=== PATIENT | male | born 1960 | race Caucasian/White ===

== ENCOUNTER 2020-02-12 09:19 | Inpatient (IN) | payer MEDICAID, SELFPAY ==
[~2020-02-12] VITALS: Ht 167.6 cm; Wt 90.7 kg
[2020-02-12 09:19] VITALS: BP 136/60
--- NOTE | 2020-02-12 09:19 | NUR ---
Patient BIBA, transferred to tent 3. RN evaluating patient.
[2020-02-12] MEDS ORDERED: NACL 0.9% 1,000 ML IV SCH (11:30)
[2020-02-12 12:18] LABS: BASOPHILS # (AUTO) 0.1 K/uL (0.00-0.22); BASOPHILS % (AUTO) 0.7 % (0.0-2.0); HEMATOCRIT 43.2 % (36-52); HEMOGLOBIN 14.6 g/dL (12.0-18.0); LYMPHOCYTES # (AUTO) 0.9 K/uL (2.0-11.5); LYMPHOCYTES % (AUTO) 10.5 % (20.5-51.1); MEAN CORPUSCULAR HEMOGLOBIN 29 pg (27-31); MEAN CORPUSCULAR HGB CONC 34 g/dL (33-37); MEAN CORPUSCULAR VOLUME 85.3 fL (80-94); MONOCYTES # (AUTO) 0.6 K/uL (0.8-1.0); MONOCYTES % (AUTO) 7.2 % (1.7-9.3); NEUTROPHILS # (AUTO) 6.9 K/uL (1.8-7.7); NEUTROPHILS % (AUTO) 81.6 % (42.2-75.2); PLATELET COUNT (AUTO) 268 K/uL (140-450); RED BLOOD CELL COUNT(AUTO) 5.07 MIL/uL (4.20-6.10); RED CELL DISTRIBUTION WIDTH 12.4 % (11.6-13.7); WHITE BLOOD COUNT (AUTO) 8.5 K/uL (4.8-10.8)
[2020-02-12 12:35] LABS: LACTATE DEHYDROGENASE 318 U/L (85-227)
[2020-02-12 12:38] LABS: ALBUMIN 3.7 g/dL (3.4-5.0); ANION GAP 13.8 (8-16); CARBON DIOXIDE 28.4 mmol/L (21-32); POTASSIUM 4.2 mmol/L (3.5-5.1); TOTAL BILIRUBIN 0.7 mg/dL (0.0-1.0)
[2020-02-12 12:39] LABS: PROTHROMBIN TIME 9.9 secs (10.8-13.4)
[2020-02-12 12:45] LABS: C-REACTIVE PROTEIN QUANT 8.5 mg/dL (0.0-0.9)
[2020-02-12] MEDS ORDERED: ACETAMINOPHEN 325 MG TAB PO PRN (17:45)
[2020-02-12] MEDS: NACL 0.9% 1,000 ML IV SCH (17:45)
[2020-02-12] MEDS ORDERED: guaiFENesin DM 200/20 MG-10 ML 10 ML UDC PO PRN (17:45)
[2020-02-12] MEDS ORDERED: HYDROcodone/APAP 7.5/325 MG 1 TAB PO PRN (17:45)
[2020-02-12] MEDS ORDERED: ALBUTEROL HFA MDI 90 MCG/ACTUATION 8 GM INH PRN (17:45)
[2020-02-12] MEDS ORDERED: DOCUSATE SODIUM 100 MG GELCAP PO PRN (17:45)
[2020-02-12] MEDS ORDERED: ZOLPIDEM 5 MG TAB PO PRN (17:45)
[2020-02-12] MEDS ORDERED: POTASSIUM CHLORIDE 10 MEQ TABER PO PRN (17:45)
--- NOTE | 2020-02-12 18:43 | NUR ---
DANIEL MADE AWARE THAT UNABLE TO GIVE IV MEDS IN LOBBY
[2020-02-12 18:50] LABS: CHOL/HDL RATIO 4.8 (1-4.5); FREE T4 (FREE THYROXINE) 1.13 ng/dL (0.76-1.46); MAGNESIUM 2.9 mg/dL (1.8-2.4); PHOSPHORUS 3.6 mg/dL (2.5-4.9); THYROID STIMULATING HORMONE 1.04 uIU/mL (0.34-3.74)
--- NOTE | 2020-02-12 19:33 | NUR ---
PT SITTING IN CHAIR IN TRIAGE . RR EVEN AND UNLABORED. NO ACUTE DISTRESS NOTED AT THIS TIME. Addendum: 02/12/20 at 1933 by OPAL PT SITTING IN CHAIR IN TENT . RR EVEN AND UNLABORED. NO ACUTE DISTRESS NOTED AT THIS TIME.
--- NOTE | 2020-02-12 19:45 | NUR ---
59 Y/O MALE PRESENTED TO ED C/O COVID SYMPTOMS . PT WAS DX W/ COVID X 2 WEEKS AGO. PT STATES HE IS FEELING DEHYDRATED AND IS HAVING SOB. PT + COUGH, FEVER, N/V . PT STATES CHEST PAIN W/ COUGH. PT A/O X 4. RR EVEN AND UNLABORED. LUNG SOUNDS CLEAR. S1S3 NOTED. CAP REFIL < 3 SEC. PT SITTING IN TENT , VSS , NO ACUTE DISTRESS NOTED AT THIS TIME. PMH: ASTHMA NKA
--- NOTE | 2020-02-12 20:13 | NUR ---
EVERT ALONSO , FLU AND MRSA SWABS COLLECTED AND HANDED TO NICHOLAS BILLING CHECKER.
[2020-02-12] MEDS: ENOXAPARIN 100 MG/ML SYR SUBQ SCH (21:00)
[2020-02-12] MEDS ORDERED: LOVENOX 1MG/KG Q12H SUBQ SCH (21:00)
--- NOTE | 2020-02-12 21:17 | NUR ---
CRITICAL LAB - COVID +
--- NOTE | 2020-02-13 | NUR ---
PT DECLINED BLANKET AT THIS TIME. VSS. NO ACUTE DISTRESS.
--- NOTE | 2020-02-13 03:00 | NUR ---
PT SLEEPING IN RECLINER CHAIR, RR EVEN AND UNLABORED, PT ON NC 2L. NO ACUTE DISTRESS NOTED.
--- NOTE | 2020-02-13 05:40 | NUR ---
PT RESTING IN CHAIR, VSS. PT ON OXYGEN 2L NC. NO ACUTE DISTRESS NOTED. PT DECLINES BLANKET AT THIS TIME.
--- NOTE | 2020-02-13 06:53 | NUR ---
PT SLEEPING IN GURNEY IN THE TENT, NO ACUTE DISTRESS. VISIBLE RISE AND FALL OF CHEST.
--- NOTE | 2020-02-13 07:21 | NUR ---
REPORT GIVEN TO EILEEN GIRALDO FOR CONTINUATION OF CARE.
[2020-02-13 08:07] LABS: T4 (THYROXINE) 7.4 ug/dL (4.5-12.0)
[2020-02-13] MEDS: PANTOPRAZOLE 40 MG TABEC PO SCH (09:00)
[2020-02-13] MEDS: ASCORBIC ACID 500 MG TAB PO SCH (09:00)
[2020-02-13] MEDS: ZINC SULF 220 MG CAP PO SCH (09:00)
[2020-02-13] MEDS: ENOXAPARIN 100 MG/ML SYR SUBQ SCH ×2 (09:00→21:00)
[2020-02-13] MEDS: AZITHROMYCIN 250 MG TAB PO SCH (09:00)
--- NOTE | 2020-02-13 09:15 | NUR ---
PT REFUSED ALL MEDS AT THIS TIME, STATES "I DONT WANT NOTHING, IM GOING TO THROW UP"
--- NOTE | 2020-02-13 09:26 | NUR ---
PATIENT HAS BEEN SCREENED AND CATEGORIZED MODERATE NUTRITION RISK. PATIENT WILL BE SEEN WITHIN 3-5 DAYS OF ADMISSION. 02/15/20 02/17/[address]
[2020-02-13] MEDS: NACL 0.9% 1,000 ML IV SCH (10:25)
--- NOTE | 2020-02-13 11:17 | NUR ---
PT TAKEN TO BED 4, REPORT GIVEN TO UBALDO AT THIS TIME
--- NOTE | 2020-02-13 11:21 | NUR ---
PT TRANSFERRED TO BED 4 AT THIS TIME. TAKING OVER CARE AT THIS TIME
--- NOTE | 2020-02-13 11:59 | NUR ---
SOCIAL WORK NOTE: SW WAS UNABLE TO MEET PATIENT AT BEDSIDE TO COMPLETE ASSESSMENT. SW CONTACTED EMERGENCY CONTACT BROTHER VY VIGIL [phone] AND LEFT VM. SW WILL FOLLOW UP.
[2020-02-13 12:20] LABS: BASOPHILS % (AUTO) 0.3 % (0.0-2.0); EOSINOPHILS % (AUTO) 0.1 % (0.0-4.0); HEMATOCRIT 45.8 % (36-52); HEMOGLOBIN 15.3 g/dL (12.0-18.0); LYMPHOCYTES % (AUTO) 11.6 % (20.5-51.1); MEAN CORPUSCULAR HEMOGLOBIN 29 pg (27-31); MEAN CORPUSCULAR HGB CONC 34 g/dL (33-37); MEAN CORPUSCULAR VOLUME 85.7 fL (80-94); MONOCYTES # (AUTO) 0.5 K/uL (0.8-1.0); MONOCYTES % (AUTO) 5.9 % (1.7-9.3); NEUTROPHILS # (AUTO) 7.2 K/uL (1.8-7.7); NEUTROPHILS % (AUTO) 82.1 % (42.2-75.2); PLATELET COUNT (AUTO) 306 K/uL (140-450); RED BLOOD CELL COUNT(AUTO) 5.35 MIL/uL (4.20-6.10); RED CELL DISTRIBUTION WIDTH 12.7 % (11.6-13.7); WHITE BLOOD COUNT (AUTO) 8.7 K/uL (4.8-10.8)
--- NOTE | 2020-02-13 12:32 | NUR ---
DC PLANN[age] YRS OLD MALE PATIENT WAS ADMITTED FROM HOME WITH A DX OF COVID PNA, HYPOXIA. PATIENT HAS A HX OF PE , MILD ASTHMA. CXR SHOWED MILD MULTIFOCAL PNEUMONIA OF THE RIGHT MID AND LOWER LUNG. RAPID COVID TEST POSITIVE. STARTED ON COVID PROTOCOL REMDESEVIR , ROCEPHIN AND AZITHROMYCIN IV AX. CONSULTED WITH PULMO AND ID. DC PLAN TO GO HOME WHEN STABLE CM TO FOLLOW. Addendum: 02/14/20 at 1515 by Saima Gonzalez RN DC PLANNING: PT HAS AN ORDER FOR HOME O2 FAXED TO [facility] DC BILLING REP WILL FOLLOW UP Addendum: 02/14/20 at 1703 by Cecilia Pompa CM DC BILLING REP: CALLED [facility] AND ASKED TO SPEAK TO JAVON [phone] [facility] TO FOLLOW UP ON ORDER SHE WAS NOT AVAILABLE AT THE TIME. Addendum: 02/15/20 at 09 by Cecilia Pompa CM RANDELL PRASAD: SPOKE TO SREE AT [facility] THEY WILL DISPATCH THE HOME
[2020-02-13 13:23] LABS: BARBITURATE, URINE NEGATIVE ng/ml (NEG <=200); BENZODIAZEPINE, URINE NEGATIVE ng/mL (NEG <=200); CANNABINOID, URINE NEGATIVE ng/mL (NEG <=50); COCAINE, URINE NEGATIVE ng/mL (NEG <=300); OPIATE, URINE NEGATIVE ng/mL (NEG <=2000); PHENCYCLIDINE SCREEN,URINE NEGATIVE ng/mL (NEG <=25)
[2020-02-13 14:21] LABS: ANION GAP 14.4 (8-16); CARBON DIOXIDE 28.9 mmol/L (21-32); CREATININE 1.1 mg/dL (0.6-1.3); POTASSIUM 4.3 mmol/L (3.5-5.1)
[2020-02-13 14:37] LABS: APPEARANCE,URINE CLEAR (CLEAR); BILIRUBIN,URINE 1+ (NEGATIVE); BLOOD, URINE NEGATIVE (NEGATIVE); COLOR,URINE AMBER (YELLOW); LEUKOCYTE ESTERASE ,URINE NEGATIVE (NEGATIVE); NITRITE, URINE NEGATIVE (NEGATIVE); UGLUCOSE NEGATIVE (NEGATIVE)
[2020-02-13 15:22] LABS: RBC,URINE 0-5 /HPF (0-5); WBC,URINE 0-5 /HPF (0-5)
--- NOTE | 2020-02-13 16:16 | NUR ---
REPORT GIVEN TO EILEEN GIRALDO. TRANSFER OF CARE AT THIS TIME.
--- NOTE | 2020-02-13 17:00 | NUR ---
VSS, NO ACUTE DISTRESS AT THIS TIME. PT IS AWAKE AND ALERT SITTING UP IN BED, RESP EVEN AND UNLABORED. 4L NC.
[2020-02-13] MEDS ORDERED: cefTRIAXone 1,000 MG VIAL ONE (17:51)
--- NOTE | 2020-02-13 19:24 | NUR ---
PT ENDORSED TO NOEMY ARELLANO
--- NOTE | 2020-02-13 21:10 | NUR ---
PT ADMITTED UNDER THE CARE OF Dr. Jarvis. admitted to telemetry room 122A. report given to Missy ARELLANO.
--- NOTE | 2020-02-13 21:30 | NUR ---
RECEIVED TELEPHONE REPORT FORM CHINA ARELLANO IN ER FOR CONTINUITY OF CARE, PT IN STABLE CONDITION.
--- NOTE | 2020-02-13 22:00 | NUR ---
PT UP ON THE FLOOR AOX4 SKIN INTACT CONTINENT AND AMBULATES INDEPENDENTLY. PT ON 4 LITERS VIA N/C. RESPIRATIONS EVEN AND UNLABORED. ALL REQUESTS, ATTENDED BY STAFF.
--- NOTE | 2020-02-13 22:30 | NUR ---
PT GIVEN ORDERED LOVENOX SQ FOR DVT PREVENTION. EDUCATION REGARDING MEDICATION PROVIDED AT BEDSIDE, PT VERBALIZED UNDERSTANDING.
[2020-02-14] VITALS: BP 139/74
[2020-02-14] MEDS: ONDANSETRON 4 MG/2 ML VIAL IM/IVP PRN ×2 (00:08→11:44)
--- NOTE | 2020-02-14 00:15 | NUR ---
PT C/O NAUSEA, HE WAS GIVEN IVP/PRN ZOFRAN. PT CONTINUES ON 4 LITERS SUPPLEMENTAL 02.
[2020-02-14] MEDS: NACL 0.9% 1,000 ML IV SCH ×2 (00:24→19:45)
--- NOTE | 2020-02-14 03:00 | NUR ---
PT IN BED ASLEEP, PT RR EVEN AND UNLABORED IN 4 LITERS VIA N/C. ALL ORDERED PRECAUTIONS IN PLACE,.
[2020-02-14 04:00] VITALS: BP 117/67
--- NOTE | 2020-02-14 06:00 | NUR ---
P[T SLEEPING NO C/O VOICED 02 RUNNING AT 4 LITERS VIA N/C
[2020-02-14 06:26] LABS: BASOPHILS % (AUTO) 0.1 % (0.0-2.0); EOSINOPHILS % (AUTO) 0.3 % (0.0-4.0); HEMATOCRIT 39.2 % (36-52); HEMOGLOBIN 13.1 g/dL (12.0-18.0); LYMPHOCYTES % (AUTO) 12.3 % (20.5-51.1); MEAN CORPUSCULAR HEMOGLOBIN 29 pg (27-31); MEAN CORPUSCULAR HGB CONC 33 g/dL (33-37); MEAN CORPUSCULAR VOLUME 86.5 fL (80-94); MONOCYTES # (AUTO) 0.7 K/uL (0.8-1.0); MONOCYTES % (AUTO) 7.8 % (1.7-9.3); NEUTROPHILS # (AUTO) 6.8 K/uL (1.8-7.7); NEUTROPHILS % (AUTO) 79.5 % (42.2-75.2); PLATELET COUNT (AUTO) 281 K/uL (140-450); RED BLOOD CELL COUNT(AUTO) 4.53 MIL/uL (4.20-6.10); RED CELL DISTRIBUTION WIDTH 12.7 % (11.6-13.7); WHITE BLOOD COUNT (AUTO) 8.5 K/uL (4.8-10.8)
[2020-02-14 06:30] LABS: ANION GAP 13.4 (8-16); CARBON DIOXIDE 27.2 mmol/L (21-32); CREATININE 0.8 mg/dL (0.6-1.3); POTASSIUM 3.6 mmol/L (3.5-5.1)
--- NOTE | 2020-02-14 07:30 | NUR ---
RECEIVED PT AAOX4. NO SOB NOTED. PT ON 4 LPM VIA NC WITH SATS OF 96%. NO C/O PAIN AT THIS TIME. INSTRUCTED TO CALL FOR ASSISTANCE, CALL LIGHT WITHIN REACH, PT VERBALIZED UNDERSTANDING.
[2020-02-14 08:00] VITALS: BP 122/66
[2020-02-14] MEDS: ENOXAPARIN 100 MG/ML SYR SUBQ SCH ×2 (10:35→22:40)
[2020-02-14] MEDS: ATORVASTATIN 20 MG TAB PO SCH (10:35)
[2020-02-14] MEDS: ZINC SULF 220 MG CAP PO SCH (10:36)
[2020-02-14] MEDS: AZITHROMYCIN 250 MG TAB PO SCH (10:36)
[2020-02-14] MEDS: PANTOPRAZOLE 40 MG TABEC PO SCH (10:36)
[2020-02-14] MEDS: ASCORBIC ACID 500 MG TAB PO SCH (10:36)
[2020-02-14] MEDS ORDERED: ONDANSETRON 4 MG/2 ML VIAL IVP PRN (11:20)
[2020-02-14 12:00] VITALS: BP 126/66
--- NOTE | 2020-02-14 14:00 | NUR ---
SPOKE WITH DR. PRIETO REGARDING PT'S PREVIOUS CT CHEST ANGIO ORDER. DR PRIETO STATED THAT PT NEED TO HAVE CT CHEST ANGIO DONE BEFORE DISCHARGE.
[2020-02-14] MEDS ORDERED: ZINC220C28 PO (14:13)
[2020-02-14] MEDS ORDERED: AZIT250T11 PO (14:13)
[2020-02-14] MEDS ORDERED: ALBU0.0912 INH (14:13)
[2020-02-14] MEDS ORDERED: VITC500 PO (14:13)
[2020-02-14] MEDS ORDERED: DEXA6TAB1 PO (14:13)
[2020-02-14] MEDS ORDERED: APIX2.5 PO (14:24)
--- NOTE | 2020-02-14 15:00 | NUR ---
CONSENT FOR CT CHEST ANGIO OBTAINED, WITH BARREL DEDENTING MACHINE OPERATOR SERVICE #[id number]. RISKS AND BENEFITS EXPLAINED TO PT, VERBALIZED UNDERSTANDING.
[2020-02-14 16:00] VITALS: BP 114/64
--- NOTE | 2020-02-14 17:05 | NUR ---
PT CAME BACK FROM CT SCAN DEPT IN STABLE CONDITION. WAITING FOR CT SCAN RESULTS.
--- NOTE | 2020-02-14 19:15 | NUR ---
PT RESTING. NO SOB NOTED. NO SIGNS OF PAIN. WILL ENDORSE TO NEXT SHIFT NURSE FOR CONTINUITY OF CARE.
--- NOTE | 2020-02-14 19:30 | NUR ---
RECEIVED REPORT FROM NANCY RNRITESH. PT AOX4 ON 2L NC, O2 SAT 90%. NO S/S RESPIRATORY DISTRESS. NO C/O PAIN AT THIS TIME. IV SITE R HAND 24G, S.L. SAFETY MEASURES IN PLACE. CALL LIGHT WITHIN REACH. WILL CONTINUE TO MONITOR
[2020-02-14 20:00] VITALS: BP 123/74
--- NOTE | 2020-02-14 22:45 | NUR ---
PT C/O COUGH. ADMINISTERED PRN ROBITUSSIN REQUESTED. TOLERATED WELL. WILL CONTINUE TO MONITOR
--- NOTE | 2020-02-14 22:45 | NUR ---
ADMINISTERED SCHEDULED MEDICATION. TOLERATED WELL. WILL CONTINUE TO MONITOR
[2020-02-15] VITALS: BP 125/70
--- NOTE | 2020-02-15 01:40 | NUR ---
PT ASLEEP IN BED. RESPIRATIONS EVEN AND UNLABORED. NO DISTRESS NOTED. WILL CONTINUE TO MONITOR
[2020-02-15 04:00] VITALS: BP 128/74
--- NOTE | 2020-02-15 04:00 | NUR ---
PT ASLEEP IN BED. RESPIRATIONS EVEN AND UNLABORED. NO DISTRESS NOTED. WILL CONTINUE TO MONITOR
[2020-02-15 06:44] LABS: BASOPHILS % (AUTO) 0.4 % (0.0-2.0); EOSINOPHILS # (AUTO) 0.1 K/uL (0-0.4); EOSINOPHILS % (AUTO) 0.6 % (0.0-4.0); HEMATOCRIT 36.8 % (36-52); HEMOGLOBIN 12.6 g/dL (12.0-18.0); LYMPHOCYTES # (AUTO) 1.4 K/uL (2.0-11.5); LYMPHOCYTES % (AUTO) 15.5 % (20.5-51.1); MEAN CORPUSCULAR HEMOGLOBIN 29 pg (27-31); MEAN CORPUSCULAR HGB CONC 34 g/dL (33-37); MEAN CORPUSCULAR VOLUME 85.9 fL (80-94); MONOCYTES # (AUTO) 0.8 K/uL (0.8-1.0); MONOCYTES % (AUTO) 8.5 % (1.7-9.3); PLATELET COUNT (AUTO) 322 K/uL (140-450); RED BLOOD CELL COUNT(AUTO) 4.28 MIL/uL (4.20-6.10); RED CELL DISTRIBUTION WIDTH 12.4 % (11.6-13.7); WHITE BLOOD COUNT (AUTO) 9.3 K/uL (4.8-10.8)
[2020-02-15 06:59] LABS: ANION GAP 11.1 (8-16); CARBON DIOXIDE 31.1 mmol/L (21-32); CREATININE 0.7 mg/dL (0.6-1.3); POTASSIUM 4.2 mmol/L (3.5-5.1)
--- NOTE | 2020-02-15 07:31 | NUR ---
PT ASLEEP IN BED. NO DISTRESS NOTED. WILL ENDORSE TO DAY RN. PT IS IN STABLE CONDITION
[2020-02-15 08:00] VITALS: BP 116/69
[2020-02-15] MEDS: ATORVASTATIN 20 MG TAB PO SCH (11:25)
[2020-02-15] MEDS: ZINC SULF 220 MG CAP PO SCH (11:25)
[2020-02-15] MEDS: ASCORBIC ACID 500 MG TAB PO SCH (11:25)
[2020-02-15] MEDS: AZITHROMYCIN 250 MG TAB PO SCH (11:25)
[2020-02-15] MEDS: PANTOPRAZOLE 40 MG TABEC PO SCH (11:25)
[2020-02-15] MEDS: ENOXAPARIN 100 MG/ML SYR SUBQ SCH (11:26)
[2020-02-15 12:00] VITALS: BP 125/69
[2020-02-15 13:44] VITALS: BP 125/69
--- NOTE | 2020-02-15 15:25 | NUR ---
pt axox4. IV Dc with no complications. educated on home and travel oxygen. taken to front lobby via wheelchair.
== END 2020-02-15 15:15 | disposition home or self-care (01) | DRG 137 ==
LOC: MED 09:19 → MTU 15:45
PROVIDERS: ADMIT Family Medicine; ATTEND Family Medicine
DX: U07.1 COVID-19 (principal); J96.01 Acute respiratory failure with hypoxia; D68.59 Other primary thrombophilia; Z86.711 Personal history of pulmonary embolism; J12.89 Other viral pneumonia; J45.909 Unspecified asthma, uncomplicated; Z90.49 Acquired absence of other specified parts of digestive tract; Z79.899 Other long term (current) drug therapy; E78.2 Mixed hyperlipidemia; E83.41 Hypermagnesemia
CPT/HCPCS: 36415; 71045; 71275; 80048; 80053; 80305; 81001; 82150; 82550; 82553; 82728; 83036; 83605; 83615; 83690; 83735; 83880; 84100; 84436; 84439; 84443; 84479; 84484; 85025; 85379; 85384; 85610; 85651; 85730; 86140; 86886; 86900; 86901; 87040; 87081; 87086; 87804; 93005; 99285; J0696; J1650; J2405; J7060; Q9967; U0003